=== PATIENT | male | born 1975 | race African-American/Black ===

== ENCOUNTER 2016-07-20 14:54 | Observation (INO) | payer OTHER ==
--- NOTE | ~2016-07-20 | TH ---
Unit #: [id number] #: [id number] Patient: CASSIDY MONTIEL [id number] [address] [address] [id number] I MR#: [id number] NAME: CASSIDY MONTIEL : 1975 SEX: M STUDY DATE/TIME: 07/21/2016 UNIT: C5B ROOM: 551 STUDY DESCRIPTION: Lexiscan study Attending Physician: Willy Zuniga M.D. Primary Care Physician: No Primary Care Physician CARDIOLOGY REPORT This 40-year-old patient received 0.4 mg of Lexiscan intravenously, followed by 29.9 mCi of Technetium 99 Cardiolite and images were obtained according to a standard SPECT protocol for rest images 10.12 mCi of Cardiolite was injected. Images were reviewed in both phases. FINDINGS Overall study quality is excellent. LV cavity size is normal in both images. There is no lung activity. RV is normal. Rotating raw data showed no significant artifact, soft tissue attenuation or GI uptake. Review of SPECT images showed normal homogenous radiotracer concentration throughout the myocardium in both the stress and rest images. Gated images showed a normal LV wall thickening and wall motion with an estimated LV ejection fraction 57%. IMPRESSION Myocardial perfusion imaging is normal. No evidence of ischemia or infarct. Normal LV dimensions. Normal systolic LV function with an estimated LV ejection fraction of 57%. Dictated by... Alexa Concepcion/mayo TD: 07/22/2016 06:53 JOB #: [id number] CARDIOLOGY REPORT X Maynor Lopez MD CARDIOLOGY REPORT
--- NOTE | ~2016-07-20 | DS ---
Unit #: [id number] #: [id number] Patient: CASSIDY MONTIEL [id number] [address] [address] [id number] I MR#: [id number] NAME: CASSIDY MONTIEL ROOM: 55 Age: 40 Sex: M Admission Date: 07/20/2016 : 1975 Discharge Date: 07/21/2016 Attending Physician: Willy Zuniga M.D. Primary Care Physician: Primary Care Physician No DISCHARGE SUMMARY ADMITTING DIAGNOSES 1. Chest pain. 2. Hypertension. DISCHARGE DIAGNOSES 1. Chest pain, resolved. 2. Hypertension. PROCEDURES On 07/21/2016, the patient had a Lexiscan Cardiolite. Dictated report is pending, however, verbal report from Dr. Lopez is that this showed no ischemia. HOSPITAL COURSE The patient is a 40-year-old male with history of hypertension who presented to the emergency department with complaints of chest pain. Myocardial infarction was ruled out with serial troponins. The patient had a Lexiscan Cardiolite and this was reportedly negative for ischemia. At the time of discharge, the patient has no more chest pain and feels ready to go home. Blood pressure has been elevated during the admission, last reading was 177/95 and Norvasc 5 mg daily and hydrochlorothiazide 25 mg daily have been added. Pulse 86 and regular, respirations 18 and regular, temperature 98.4, O2 saturation 100% on room air. Physical exam is unremarkable. TSH was 1.24. Cholesterol 198, LDL 138, HDL 42, triglycerides 90. Troponin less than 0.03 at 2:04 this morning and at 19:20 yesterday. DISCHARGE MEDICATIONS 1. Norvasc 5 mg daily. 2. Hydrochlorothiazide 25 mg daily. FOLLOWUP Mr. Montiel will follow up with Dr. Gardner in the next 3 or 4 weeks. He was advised to also become established with a primary care physician. Unit #: [id number] #: [id number] Patient: CASSIDY MONTIEL Dictated by... Raven Solorio, P.A.C. for Maynor Lopez M.D. NORA/ignacio TD: 07/22/2016 22:47 JOB #: [id number] DISCHARGE SUMMARY X X DISCHARGE SUMMARY
--- NOTE | ~2016-07-20 | HP ---
Unit #: [id number] #: [id number] Patient: CASSIDY MONTIEL [id number] [address] [place], [place] [address] [id number] I MR#: [id number] NAME: CASSIDY MONTIEL. ROOM: 551 Age: 40 Sex: M Admission Date: 07/20/2016 : 1975 Attending Physician: Willy Zuniga M.D. Primary Care Physician: No Primary Care Physician HISTORY AND PHYSICAL CHIEF COMPLAINT Chest pain. HISTORY OF PRESENT ILLNESS The patient is a 40-year-old, -[place] male who presented to the emergency department on 07/20/2016 with complaints of chest pain. The patient states that he had been walking outside for some time and developed substernal chest pressure. He felt someone was pushing on his chest. He states that his arms also felt heavy. He also had associated shortness of air and nausea but no vomiting. He denies diaphoresis. He said he had to sit down for some time and also had associated dizziness. He was brought to the emergency department and received nitroglycerin, which he said helped to alleviate his chest pain. He feels overall the chest pain lasted at least 30 minutes. He has had other episodes of chest pain but not quite as severe. He describes it as chest pressure and are not always related to exertion. This has been occurring off and on for the past several months. The patient also received aspirin when he reached the emergency department. PAST MEDICAL HISTORY Hypertension, reported rheumatoid arthritis. PAST SURGICAL HISTORY None. HOME MEDICATIONS None listed (the patient reports taking blood pressure medication in the recent past, which produced headaches). ALLERGIES No known drug allergies. SOCIAL HISTORY He does not smoke tobacco. He does smoke marijuana, most recently yesterday. He says prior to that the last episode was three to four months ago. He occasionally drinks beer. He has used cocaine but he said this has not been for several years. He denies any other drug use. He works in a warehouse. FAMILY HISTORY Denies any family history of premature coronary artery disease. REVIEW OF SYSTEMS GENERAL: He denies recent fevers, chills, or flu-like symptoms. Unit #: [id number] #: [id number] Patient: CASSIDY MONTIEL HEENT: He has occasional headaches. Denies epistaxis. NECK: Denies swollen glands. CARDIAC: As above. Denies palpitations, tachycardia, orthopnea or PND. PULMONARY: Denies cough, hemoptysis or wheezing. ABDOMEN: Denies nausea with current episode. Denies vomiting, diarrhea, or melena. : Denies hematuria. EXTREMITIES: Denies swelling or claudication. NEUROLOGIC: Dizziness as discussed above. No syncope. MUSCULOSKELETAL: General joint pain. PHYSICAL EXAMINATION VITAL SIGNS: Blood pressure is 146/84 (blood pressure has been has high as 152/111), temperature is 97.9, heart rate 95 and regular, respirations 18 and regular. O2 sat 96% on room air. Weight is 227 pounds. GENERAL: The patient is well developed, well nourished, obese, -[place] male in no acute distress. Alert and oriented x3. SKIN: No rashes or hives. HEENT: Head is normocephalic and atraumatic. There is no xanthelasma. Oral mucosa is pink and moist. NECK: No JVD or carotid bruits. CARDIAC: Regular rate and rhythm without murmur, gallop, rub or lift. PULMONARY: Clear. to auscultation bilaterally without wheezes, rhonchi or accessory muscle use. ABDOMEN: Soft, nontender, nondistended. Positive bowel sounds x4. The abdominal aorta pulsation is not enlarged. EXTREMITIES: No clubbing, cyanosis or edema. DIAGNOSTIC STUDIES CURRENT LABS AND TEST: CK 585, MB 0.7, troponin less than 0.03 at 2:04 this morning and less than 0.03 at 19:20 yesterday and less than 0.05 at 12:43 yesterday. CK was 726 at 19:20 yesterday. Sodium 138, potassium 3.6, chloride 104, CO2 25, glucose 91, BUN 12, creatinine 0.9, AST 33, ALT 22, BUN 50, PT 10.6, INR 1.0. White blood cell 4.0, hemoglobin 13.4, hematocrit 40.5 and platelets are 191. IMAGING STUDIES: Chest x-ray showed normal heart size with stable tortuous aorta. The lungs are clear and there were no effusions. EKG: Normal sinus rhythm with nonspecific ST abnormality. ASSESSMENT 1. Chest pain. 2. Hypertension. 3. Arthritis, reportedly rheumatoid arthritis. 4. Obesity. 5. Marijuana use. 6. Elevated CK. PLAN Mr. Montiel will have a stress Cardiolite and 2D echo. He has been started on Norvasc 5 mg daily and HCTZ for blood pressure. Once his tests are completed further recommendations will follow. Dictated by Kale Lund for Jamey Gardner M.D. Unit #: [id number] #: [id number] Patient: CASSIDY MONTIEL NORA/mayo TD: 07/21/2016 09:08 JOB #: [id number] HISTORY AND PHYSICAL X X HISTORY AND PHYSICAL
--- NOTE | ~2016-07-20 | EKG ---
PATIENT: CASSIDY MONTIEL UNIT #: [id number] Ventricular Rate: 75 BPM Atrial Rate: 75 BPM P-R Interval: 186 ms QRS Duration: 80 ms Q-T Interval: 372 ms QTC Calculation(Bezet): 415 ms P [place]: 31 degrees Calculated R [place]: -9 degrees Calculated T [place]: -2 degrees Diagnosis Line: Normal sinus rhythm Diagnosis Line: Nonspecific T wave abnormality Diagnosis Line: Borderline ECG Diagnosis Line: When compared with ECG of 20-JUL-2016 11:34, Diagnosis Line: (unconfirmed) Diagnosis Line: No significant change was found Diagnosis Line: Confirmed by LOUIS HENDERSON MD ([id number]) on 07/22/2016 Diagnosis Line: 7:13:13 AM INTERPRETING MD: BEATRIZ PHILIP
--- NOTE | ~2016-07-20 | EKG ---
PATIENT: CASSIDY MONTIEL UNIT #: [id number] Ventricular Rate: 69 BPM Atrial Rate: 69 BPM P-R Interval: 184 ms QRS Duration: 74 ms Q-T Interval: 372 ms QTC Calculation(Bezet): 398 ms P [place]: 32 degrees Calculated R [place]: -15 degrees Calculated T [place]: -6 degrees Diagnosis Line: Normal sinus rhythm Diagnosis Line: Normal ECG Diagnosis Line: When compared with ECG of 24-APR-2016 17:10, Diagnosis Line: No significant change was found Diagnosis Line: Confirmed by CHARANJIT AMBRIZ MD ([id number]) on Diagnosis Line: 07/21/2016 4:09:27 PM INTERPRETING MD: PB PHILIP
--- NOTE | ~2016-07-20 | ST ---
Unit #: [id number] #: [id number] Patient: CASSIDY MONTIEL [id number] [address] [address] [id number] I MR#: [id number] NAME: CASSIDY MONTIEL : 1975 SEX: M STUDY DATE/TIME: 07/21/2016 UNIT: C5B ROOM: 551 STUDY DESCRIPTION: Stress test Attending Physician: Willy Zuniga M.D. Primary Care Physician: No Primary Care Physician CARDIOLOGY REPORT DESCRIPTION Baseline EKG: Normal sinus rhythm. Nonspecific ST-T changes. Resting heart rate 96 per minute. Blood pressure 141/107. This 40-year-old patient received a 0.4 mg of Lexiscan intravenously during the test. No ischemic changes noted. No arrhythmias noted. Blood pressure was stable. INTERPRETATION 1. Nondiagnostic of EKG during Lexiscan. 2. No arrhythmias noted. 3. Stable blood pressure during the test. 4. Correlate with a Cardiolite study. Dictated by... Alexa Concepcion/mayo TD: 07/22/2016 06:48 JOB #: [id number] CARDIOLOGY REPORT X Maynor Lopez MD CARDIOLOGY REPORT
--- NOTE | ~2016-07-20 | CR72 ---
[facility] A Service of [place] & [facility] RADIOLOGY TEXT RESULTS PATIENT: CASSIDY MONTIEL LOCATION: [place] [address] : [birth year] UNIT #: [id number] AGE: [address]: Willy Zuniga MD SEX: M ORDER DR: [id number] [facility] [address] [facility] [address]. [place], [place] [address] [id number] I MR#: [id number] Acc #: [id number] NAME: CASSIDY MONTIEL. : 1975 SEX: M STUDY DATE/TIME: 07/20/2016 UNIT: [facility] ROOM: 71571 STUDY DESCRIPTION: CR Chest Single View Portable Attending Physician: Juan Navas M.D. Ordering Physician: Ellen Roque M.D. Primary Care Physician: No Primary Care Physician MEDICAL IMAGING REPORT This report is preliminary unless electronic signature is present EXAM Chest, portable, 07/20/2016, 1242 hours. HISTORY 40-year-old man complaining of chest pain, headache with nausea for 1 month. COMPARISON STUDIES 04/24/2016 FINDINGS Single upright portable view demonstrates normal heart size. There is a stable tortuous aorta. The pulmonary vascularity is normal. The lungs are clear, and there are no effusions. IMPRESSION Normal heart size with stable tortuous aorta. The lungs are clear, and there are no effusions. Dictated by... Marilee Fowler M.D. THIS IS AN ELECTRONICALLY VERIFIED REPORT Marilee Fowler M.D. at 07/21/2016 9:25 AM Cristiana TD: 07/20/2016 19:20 JOB #: [id number] MEDICAL IMAGING REPORT COPY
[2016-07-20 12:44] LABS: POC - CKMB <1.0 ng/mL (0.0-7.9); POC - TROPONIN <0.05 ng/mL (<=0.05)
[2016-07-20 12:51] LABS: BASOPHIL% 0.9 % (0-2.5); EOSINOPHIL% 0.2 % (0.0-7.0); HEMATOCRIT 40.5 % (38.0-50.0); HEMOGLOBIN 13.4 gm/dL (13.0-16.0); LYMPHOCYTE# 1.2 X10e3 (1.0-3.5); LYMPHOCYTE% 30.6 % (17.0-45.0); MEAN CELL VOLUME 84.1 FL (83-96); MEAN CORPUSCULAR HEMOGLOBIN 27.8 PG (28-34); MEAN CORPUSCULAR HGB CONC 33.1 g/dL (30-36); MEAN PLATELET VOLUME 8.8 FL (6.5-11.5); MONOCYTE# 0.2 X10e3 (0-1.0); MONOCYTE% 6.1 % (3.0-12.0); NEUTROPHIL# 2.5 X10e3 (1.5-7.1); NEUTROPHIL% 62.2 % (40-75); PLATELET COUNT 191 X10e3 (140-420); RED BLOOD COUNT 4.82 X10e (3.90-5.60)
[2016-07-20 12:52] LABS: DIFF IND NO
[2016-07-20 13:04] LABS: PARTIAL THROMBOPLASTIN TIME 26.9 SECONDS (23.5-31.3); PROTHROMBIN TIME (PATIENT) 10.6 SECONDS (9.6-11.5)
[2016-07-20 13:23] LABS: ALBUMIN SERUM 3.6 g/dL (3.5-5.0); ALKALINE PHOSPHATASE 63 U/L (32-92); ALT (SGPT) 22 U/L (10-40); AST (SGOT) 33 U/L (10-42); BILIRUBIN, DIRECT 0.1 mg/dL (0.0-0.2); BILIRUBIN,INDIRECT 0.8 mg/dL (0.0-0.9); BILIRUBIN,TOTAL 0.9 mg/dL (0.2-2.0); BLOOD UREA NITROGEN 12 mg/dL (9-23); BUN/CREATININE RATIO 13.33; CARBON DIOXIDE 25 mmol/L (22-31); CHLORIDE 104 mmol/L (100-111); CREATININE SERUM 0.9 mg/dL (0.6-1.4); GLOM FILT RATE Estimated ABOVE60 mL/min (>60); GLUCOSE FASTING 91 mg/dL (70-110); POTASSIUM 3.6 mmol/L (3.5-5.1); PROTEIN TOTAL SERUM 6.9 g/dL (6.0-8.3); SODIUM 138 mmol/L (135-145)
[2016-07-20 14:09] LABS: POC - CKMB <1.0 ng/mL (0.0-7.9); POC - TROPONIN <0.05 ng/mL (<=0.05)
[~2016-07-20 14:54] MED LIST: DELSYM30 MG/5 M1 PO; ERYC250 MG PO; GENTAK3.5 GM OP; TUSSIONEX PENN473 ML PO; ULTRAM PO; VIBRAMYCIN100 M1 PO
[2016-07-20 20:51] LABS: %MB 0.1 % (0.0-4.0); MB 0.9 ng/ml
[2016-07-21 03:05] LABS: %MB 0.1 % (0.0-4.0); MB 0.7 ng/ml
[2016-07-21 12:34] LABS: CHOLESTEROL 198 mg/dL (0-200); HDL CHOLESTEROL 42 mg/dL (29-75); LDL/HDL RATIO 3 RATIO (0-4); TRIGLYCERIDES 90 mg/dL (10-160)
[2016-07-21 12:35] LABS: LDL CHOLESTEROL 138 mg/dL (-130)
[2016-07-21] MEDS ORDERED: AMLODIPINE BESYL5 MG PO (17:28)
[2016-07-21] MEDS ORDERED: HYDROCHLOROTHIA25 MG PO (17:29)
== END 2016-07-21 18:38 | disposition home or self-care (01) ==
LOC: CED 14:54 → CEDOF 17:48 → C5B 07-21 00:50 → C2C 07-21 08:36 → C5B 07-21 08:45
PROVIDERS: Emergency Medicine; Internal Medicine Cardiovascular Disease
DX: R07.89 Other chest pain (principal); I10 Essential (primary) hypertension; M06.9 Rheumatoid arthritis, unspecified; E66.9 Obesity, unspecified; R94.4 Abnormal results of kidney function studies; F12.90 Cannabis use, unspecified, uncomplicated; I51.7 Cardiomegaly
CPT/HCPCS: 36415; 71010; 78452; 80048; 80061; 80076; 82550; 82553; 83036; 83880; 84443; 84484; 85025; 85610; 85730; 93005; 93017; 93306; 99285; A9500; G0378; J2785

== ENCOUNTER 2016-09-26 23:17 | Emergency (ER) | payer OTHER ==
--- NOTE | ~2016-09-26 | CT71 ---
[facility] A Service of [facility] & [facility] RADIOLOGY TEXT RESULTS PATIENT: CASSIDY MONTIEL LOCATION: [facility] : [birth year] UNIT #: [id number] AGE: [address]: Ric Jean MD SEX: M ORDER DR: [id number] [facility] [address] [facility]. [place], [place] [address] [id number] E MR#: [id number] Acc #: [id number] NAME: CASSIDY MONTIEL : 1975 SEX: M STUDY DATE/TIME: UNIT: [facility] ROOM: STUDY DESCRIPTION: CT Head Wo Contrast Attending Physician: Ric Jean M.D. Ordering Physician: Eren Clarke M.D. Primary Care Physician: Primary Care Physician No MEDICAL IMAGING REPORT This report is preliminary unless electronic signature is present EXAM Head CT 09/27 at 0048 hours INDICATIONS Dizziness, chest pain, hypertension since 10:00 last night. TECHNIQUE Axial noncontrast images were obtained from the skull base to the vertex. This CT exam was performed with one or more of the following radiation dose reduction techniques: automatic exposure control, adjustment of mA and/or kV according to patient size, and iterative reconstruction. FINDINGS Ventricular size and configuration are normal. There is no evidence of acute infarct or hemorrhage. There are no extraaxial fluid collections. No mass lesion or mass effect is seen. There are no skull fractures. IMPRESSION Normal noncontrast head CT. Dictated by... Gilberto Braden Jr., M.D. THIS IS AN ELECTRONICALLY VERIFIED REPORT Gilberto Braden Jr., M.D. at 09/27/2016 9:23 PM RLK/shaila TD: 09/27/2016 14:24 JOB #: [id number] MEDICAL IMAGING REPORT Page 1 of 1 COPY
--- NOTE | ~2016-09-26 | EKG ---
PATIENT: CASSIDY MONTIEL UNIT #: [id number] Ventricular Rate: 93 BPM Atrial Rate: 93 BPM P-R Interval: 194 ms QRS Duration: 76 ms Q-T Interval: 356 ms QTC Calculation(Bezet): 442 ms P [employer]: 32 degrees Calculated R [employer]: -19 degrees Calculated T [employer]: -21 degrees Diagnosis Line: Normal sinus rhythm Diagnosis Line: Nonspecific T wave abnormality Diagnosis Line: Abnormal ECG Diagnosis Line: When compared with ECG of 21-JUL-2016 06:26, Diagnosis Line: Nonspecific T wave abnormality now evident in Diagnosis Line: Anterior leads Diagnosis Line: Confirmed by TC HALEY MD ([id number]) on Diagnosis Line: 09/28/2016 8:36:30 AM INTERPRETING MD: SUDHA PHILIP
[~2016-09-26 23:17] MED LIST changes: +AMLODIPINE BESYL5 MG PO; +HYDROCHLOROTHIA25 MG PO
[2016-09-27 00:36] LABS: BASOPHIL% 0.6 % (0-2.5); EOSINOPHIL% 0.5 % (0.0-7.0); HEMOGLOBIN 14.7 gm/dL (13.0-16.0); LYMPHOCYTE# 1.4 X10e3 (1.0-3.5); LYMPHOCYTE% 27.7 % (17.0-45.0); MEAN CELL VOLUME 84.3 FL (83-96); MEAN CORPUSCULAR HEMOGLOBIN 27.7 PG (28-34); MEAN CORPUSCULAR HGB CONC 32.8 g/dL (30-36); MEAN PLATELET VOLUME 9.2 FL (6.5-11.5); MONOCYTE# 0.3 X10e3 (0-1.0); MONOCYTE% 6.4 % (3.0-12.0); NEUTROPHIL# 3.3 X10e3 (1.5-7.1); NEUTROPHIL% 64.8 % (40-75); PLATELET COUNT 212 X10e3 (140-420); RED BLOOD COUNT 5.33 X10e (3.90-5.60); RED CELL DISTRIBUTION WIDTH 14.2 % (11.0-15.5); WHITE BLOOD COUNT 5.1 X10e3 (4.0-10.5)
[2016-09-27 00:37] LABS: DIFF IND NO
[2016-09-27 00:48] LABS: POC - CKMB <1.0 ng/mL (0.0-7.9); POC - TROPONIN <0.05 ng/mL (<=0.05)
[2016-09-27 01:01] LABS: CALCIUM SERUM 8.5 mg/dL (8.4-10.2); GLOM FILT RATE Estimated 107.1 mL/min (>60)
[2016-09-27 02:18] LABS: POC - CKMB <1.0 ng/mL (0.0-7.9); POC - TROPONIN <0.05 ng/mL (<=0.05)
== END 2016-09-27 02:59 | disposition home or self-care (01) ==
LOC: CED 23:17
PROVIDERS: Emergency Medicine
DX: E86.0 Dehydration (principal); R07.89 Other chest pain; I10 Essential (primary) hypertension; Z79.899 Other long term (current) drug therapy
CPT/HCPCS: 70450; 80048; 82553; 84484; 85025; 93005; 96360; 99284

== ENCOUNTER 2016-10-25 00:54 | Emergency (ER) | payer OTHER ==
--- NOTE | ~2016-10-25 | CR173 ---
[facility] A Service of [facility] & [facility] RADIOLOGY TEXT RESULTS PATIENT: CASSIDY MONTIEL LOCATION: [facility] : [birth year] UNIT #: [id number] AGE: [address]: Ric Jean MD SEX: M ORDER DR: [id number] [facility] [address] [facility]. [place], [place] [address] [id number] MR#: [id number] Acc #: [id number] NAME: CASSIDY MONTIEL : 1975 SEX: M STUDY DATE/TIME: 10/25/2016 3:36 UNIT: [facility] ROOM: STUDY DESCRIPTION: CR Knee 3 Views Rt Attending Physician: Ric Jean M.D. Ordering Physician: Ric Jean M.D. Primary Care Physician: Primary Care Physician No MEDICAL IMAGING REPORT This report is preliminary unless electronic signature is present EXAM Right knee INDICATION Right knee pain and swelling for 2 days. No known injury. FINDINGS AP, lateral and sunrise views of the right knee were obtained. There is a large joint effusion. The bones are normal. IMPRESSION Large joint effusion, otherwise normal. Dictated by... Mario Miller M.D. THIS IS AN ELECTRONICALLY VERIFIED REPORT Mario Miller M.D. at 10/25/2016 1:53 PM SERA/neelima TD: 10/25/2016 12:09 JOB #: [id number] MEDICAL IMAGING REPORT Page 1 of 1 COPY
== END 2016-10-25 04:08 | disposition home or self-care (01) ==
LOC: CED 00:54
DX: M25.561 Pain in right knee (principal); R21 Rash and other nonspecific skin eruption; I10 Essential (primary) hypertension; F17.200 Nicotine dependence, unspecified, uncomplicated; Z79.899 Other long term (current) drug therapy
CPT/HCPCS: 29530; 73562; 99283